=== PATIENT | male | born 1965 | race American Indian/Alaskan Native ===

== ENCOUNTER 2017-12-16 10:12 | Inpatient (IN) | payer BC ==
--- NOTE | 2017-12-16 11:35 | C.PDOC ---
History Of Present Illness 52 y/o male presents to the ER for incarcerated hernia. Of note, patient has been sent by his surgeon, Dr. Mccabe. Patient does not have any other complaints. Time Seen by Provider: 12/16/17 11:20 Chief Complaint (Nursing): Male Genitourinary History Per: Patient History/Exam Limitations: no limitations Onset/Duration Of Symptoms: Days Current Symptoms Are (Timing): Still Present Severity: Moderate Past Medical History Reviewed: Historical Data, Nursing Documentation, Vital Signs Vital Signs: Last Vital Signs Temp 97.6 F 12/16/17 10:28 Pulse 78 12/16/17 10:28 Resp 18 12/16/17 10:28 BP 117/74 12/16/17 10:28 Pulse Ox 99 12/16/17 11:48 - Medical History PMH: HIV, HTN Surgical History: No Surg Hx Family History: States: No Known Family Hx - Social History Hx Alcohol Use: No Hx Substance Use: No - Immunization History Hx Tetanus Toxoid Vaccination: No Hx Influenza Vaccination: Yes Hx Pneumococcal Vaccination: No Review Of Systems Except As Marked, All Systems Reviewed And Found Negative. Constitutional: Negative for: Fever, Chills Gastrointestinal: Positive for: Other (incarcerated hernia) Neurological: Negative for: Weakness, Numbness Physical Exam - Physical Exam Appears: Non-toxic, No Acute Distress Skin: Normal Color, Warm Head: Atraumatic, Normacephalic Eye(s): bilateral: Normal Inspection, PERRL Nose: Normal Oral Mucosa: Moist Neck: Supple Chest: Symmetrical Cardiovascular: Rhythm Regular Respiratory: Normal Breath Sounds, No Accessory Muscle Use, No Rales, No Wheezing Gastrointestinal/Abdominal: Normal Exam, Soft, No Tenderness, No Guarding, No Rebound Extremity: Normal ROM Neurological/Psych: Oriented x3, Normal Speech, Normal Cognition, Normal Motor, Normal Sensation ED Course And Treatment - Laboratory Results Result Diagrams: 12/16/17 12:40 12/16/17 12:40 ECG Rhythm: Sinus Rhythm Interpretation Of ECG: no ST/T changes Rate From EC O2 Sat by Pulse Oximetry: 99 Medical Decision Making Medical Decision Making: Impression: Incarcerated Hernia Plan: --Labs --ECG --CXR Disposition - Disposition Disposition: HOSPITALIZED Disposition Time: 15:30 Condition: STABLE - Clinical Impression Clinical Impression: Hernia - Scribe Statement The provider has reviewed the documentation as recorded by the Scribe Summen Maximo Provider Attestation: All medical record entries made by the Jordan were at my direction and personally dictated by me. I have reviewed the chart and agree that the record accurately reflects my personal performance of the history, physical exam, medical decision making, and the department course for this patient. I have also personally directed, reviewed, and agree with the discharge instructions and disposition. Decision To Admit - Pt Status Changed To: Hospital Disposition Of: SDS- Endo,OR,Cath,IR - . Bed Request Type: Same Day Surgery Admitting Physician: Kendrick Mccabe Patient Diagnosis: Hernia
--- NOTE | 2017-12-16 12:17 | RAD ---
HISTORY: baseline COMPARISON: None available. TECHNIQUE: Chest PA and lateral FINDINGS: LUNGS: Bilateral hilar prominence. No focal consolidation. Please note that chest x-ray has limited sensitivity for the detection of pulmonary masses. PLEURA: No significant pleural effusion identified. No definite pneumothorax . CARDIOVASCULAR: Heart size appears top normal. OSSEOUS STRUCTURES: No acute osseous abnormality identified. VISUALIZED UPPER ABDOMEN: Unremarkable. OTHER FINDINGS: None. IMPRESSION: Bilateral hilar prominence. No acute findings identified.
[2017-12-16 12:48] LABS: EOS # 0.1 K/uL (0.0-0.7); EOS % 1.5 % (0.0-4.0); HEMOGLOBIN 14.1 g/dL (12.0-18.0); LYMPH # 1.7 K/uL (1.0-4.3); LYMPH % 40.8 % (20.0-40.0); MEAN CELL VOLUME 93.8 fL (80.0-94.0); MEAN CORPUSCULAR HEMOGLOBIN 31.6 pg (27.0-31.0); MEAN CORPUSCULAR HGB CONC 33.7 g/dL (33.0-37.0); MEAN PLATELET VOLUME 8.1 fL (7.2-11.7); MONO # 0.4 K/uL (0.0-0.8); MONO % 8.8 % (0.0-10.0); NEUT % 47.9 % (50.0-75.0); RBC 4.46 Mil/uL (4.40-5.90); RED CELL DISTRIBUTION WIDTH 12.9 % (11.5-14.5); WHITE BLOOD COUNT 4.1 K/uL (4.8-10.8)
[2017-12-16 12:55] LABS: INR 1.1
[2017-12-16 12:58] LABS: ALBUMIN 4.1 g/dL (3.5-5.0); ALT/SGPT 69 U/L (21-72); AST/SGOT 48 U/L (17-59); BLOOD UREA NITROGEN 17 mg/dL (9-20); CALCIUM 8.9 mg/dl (8.6-10.4); GFR AFRICAN-AMERICAN > 60; GFR NON-AFRICAN AMERICAN > 60
[2017-12-16] MEDS ORDERED: Lactated Ringer's 1,000 ML IV ONE ×2 (15:00→16:15)
[2017-12-16] MEDS ORDERED: ceFAZolin IV 2 gm in Dextrose 2 GM/50 ML BAG IVPB ONE (15:03)
[2017-12-16] MEDS ORDERED: Propofol 10 mg/ml Inj (20 ML) ONE (15:05)
[2017-12-16] MEDS ORDERED: Midazolam 2 MG/2 ML VIAL ONE (15:05)
[2017-12-16] MEDS ORDERED: metroNIDAZOLE IV 500 mg/100 ml 500 MG/100 ML BAG ONE (16:15)
[2017-12-16] MEDS ORDERED: HYDROmorphone 0.5 mg/0.5 ml ISec IVP PRN (16:30)
[2017-12-16] MEDS ORDERED: Bupivacaine HCl 0.25% PF (10 ml) Inj ONE (16:52)
[2017-12-16] MEDS ORDERED: Oxycodone/Acetaminophen 5/325 mg Tab PO PRN (17:07)
[2017-12-16] MEDS ORDERED: Piperacillin/Tazobact 3.375 GM in Sodium Chloride 100 ML IVPB SCH (17:15)
[2017-12-16] MEDS ORDERED: metroNIDAZOLE IV 500 mg/100 ml 500 MG/100 ML BAG IVPB SCH (18:00)
[2017-12-16] MEDS ORDERED: Dextrose 5%/0.45% NS 1,000 ML IV ONE (18:27)
[2017-12-16] MEDS: Piperacill/Tazo 3.375gm in Dex 3.375 GM/50 ML BAG IVPB SCH ×2 (18:28→23:56)
[2017-12-16] MEDS: Dextrose 5%/0.45% NS 1,000 ML IV SCH (21:27)
--- NOTE | 2017-12-16 21:57 | CP.PCM.HP ---
History of Present Illness - History of Present Illness History of Present Illness: CC: Post op care s/p surgery of inguinal hernia HPI: 52 y/o male who is HIV positive on HAART therapy , complaint and according to him his last CD4 count was good presents to the ER for incarcerated hernia. Of note, patient has been sent by his surgeon, Dr. Mccabe. Patient does not have any other complaints.Pt has some ost op pain denies any other complains Present on Admission - Present on Admission Any Indicators Present on Admission: Yes Review of Systems - Review of Systems Systems not reviewed;Unavailable: Acuity of Condition - Constitutional Constitutional: Anorexia, Fatigue, Malaise - EENT Eyes: absent: As Per HPI, Blind Spots, Blurred Vision, Change in Vision, Decreased Night Vision, Diplopia, Discharge, Dry Eye, Exophthalmos, Floaters, Irritation, Itchy Eyes, Loss of Peripheral Vision, Pain, Photophobia, Requires Corrective Lenses, Sees Flashes, Spots in Vision, Tunnel Vision, Other Visual Disturbances, Loss of Vision, Other Nose/Mouth/Throat: absent: As Per HPI, Epistaxis, Nasal Congestion, Nasal Discharge, Nasal Obstruction, Nasal Trauma, Nose Pain, Post Nasal Drip, Sinus Pain, Sinus Pressure, Bleeding Gums, Change in Voice, Dental Pain, Dry Mouth, Dysphagia, Halitosis, Hoarsness, Lip Swelling, Mouth Lesions, Mouth Pain, Odynophagia, Sore Throat, Throat Swelling, Tongue Swelling, Facial Pain, Neck Pain, Neck Mass, Other - Cardiovascular Cardiovascular: absent: As Per HPI, Acrocyanosis, Chest Pain, Chest Pain at Rest , Chest Pain with Activity, Claudication, Diaphoresis, Dyspnea, Dyspnea on Exertion, Edema, Irregular Heart Rhythm, Pain Radiating to Arm/Neck/Jaw, Leg Edema, Leg Ulcers, Lightheadedness, Orthopnea, Palpitations, Paroxysmal Nocturnal Dyspnea, Pedal Edema, Radiating Pain, Rapid Heart Rate, Slow Heart Rate, Syncope, Other - Respiratory Respiratory: absent: As Per HPI, Cough, Dyspnea, Hemoptysis, Dyspnea on Exertion , Wheezing, Snoring, Stridor, Pain on Inspiration, Chest Congestion, Excessive Mucous Production, Change in Mucous Color, Pain with Coughing, Other - Gastrointestinal Gastrointestinal: absent: As Per HPI, Abdominal Pain, Belching, Bloating, Change in Bowel Habits, Change in Stool Character, Coffee Ground Emesis, Constipation, Cramping, Diarrhea, Dyspepsia, Dysphagia, Early Satiety, Excessive Flatus, Fecal Incontinence, Heartburn, Hematemesis, Hematochezia, Loose Stools, Melena, Nausea, Odynophagia, Temesmus, Vomiting, Other - Genitourinary Genitourinary: absent: As Per HPI, Change in Urinary Stream, Difficulty Urinating, Dysuria, Flank Pain, Hematuria, Pyuria, Nocturia, Urinary Incontinence, Urinary Frequency, Urinary Hesitance, Urinary Urgency, Voiding Freq/Small Amts, Freq UTI, Hx Renal/Bladder Calculi, Hx /Renal Surgery, Bladder Distension, Other - Musculoskeletal Musculoskeletal: absent: As Per HPI, Abnormal Gait, Arthralgias, Atrophy, Back Pain, Deformity, Joint Swelling, Limited Range of Motion, Loss of Height, Muscle Cramps, Muscle Weakness, Myalgias, Neck Pain, Numbness, Radiating Pain into Limb, Stiffness, Tingling, Other Past Patient History - Past Social History Smoking Status: Never Smoked - CARDIAC Hx Hypertension: Yes - HEMATOLOGICAL/ONCOLOGICAL Hx Human Immunodeficiency Virus (HIV): Yes - MUSCULOSKELETAL/RHEUMATOLOGICAL Hx Falls: No - GENITOURINARY/GYNECOLOGICAL Hx Prostate Problems: Yes - PSYCHIATRIC Hx Substance Use: No - SURGICAL HISTORY Hx Surgeries: No - ANESTHESIA Hx Anesthesia: Yes Hx Anesthesia Reactions: No Meds Allergies/Adverse Reactions: Allergies Allergy/AdvReac Type Severity Reaction Status Date / Time animal dander Allergy Verified 12/16/17 10:33 Physical Exam - Constitutional Appears: No Acute Distress - Head Exam Head Exam: ATRAUMATIC, NORMAL INSPECTION, NORMOCEPHALIC - Eye Exam Eye Exam: EOMI, Normal appearance, PERRL Pupil Exam: NORMAL ACCOMODATION, PERRL - Respiratory Exam Respiratory Exam: Clear to Auscultation Bilateral, NORMAL BREATHING PATTERN - Cardiovascular Exam Cardiovascular Exam: REGULAR RHYTHM - GI/Abdominal Exam GI & Abdominal Exam: Hernia, Tenderness Additional comments: post op dressing right inguinal hernia repair Results - Vital Signs Recent Vital Signs: Last Vital Signs Temp 98.5 F 12/16/17 20:00 Pulse 92 H 12/16/17 20:00 Resp 20 12/16/17 20:00 BP 141/71 12/16/17 20:00 Pulse Ox 98 12/16/17 20:00 - Labs Result Diagrams: 12/16/17 12:40 12/16/17 12:40 Labs: Laboratory Results - last 24 hr 12/16/17 12/16/17 12/16/17 12:40 12:40 12:40 WBC 4.1 L RBC 4.46 Hgb 14.1 Hct 41.9 MCV 93.8 MCH 31.6 H MCHC 33.7 RDW 12.9 Plt Count 272 MPV 8.1 Neut % (Auto) 47.9 L Lymph % (Auto) 40.8 H Mellette % (Auto) 8.8 Eos % (Auto) 1.5 Baso % (Auto) 1.0 Neut # 2.0 Lymph # 1.7 Mellette # 0.4 Eos # 0.1 Baso # 0.0 PT 12.0 INR 1.1 APTT 33 Sodium 134 Potassium 4.3 Chloride 102 Carbon Dioxide 23 Anion Gap 13 BUN 17 Creatinine 0.9 Est GFR ( Amer) > 60 Est GFR (Non-Af Amer) > 60 Random Glucose 106 Calcium 8.9 Total Bilirubin 0.5 AST 48 ALT 69 Alkaline Phosphatase 68 Total Protein 8.3 Albumin 4.1 Globulin 4.2 H Albumin/Globulin Ratio 1.0 Blood Type Antibody Screen 12/16/17 12:40 WBC RBC Hgb Hct MCV MCH MCHC RDW Plt Count MPV Neut % (Auto) Lymph % (Auto) Mellette % (Auto) Eos % (Auto) Baso % (Auto) Neut # Lymph # Mellette # Eos # Baso # PT INR APTT Sodium Potassium Chloride Carbon Dioxide Anion Gap BUN Creatinine Est GFR ( Amer) Est GFR (Non-Af Amer) Random Glucose Calcium Total Bilirubin AST ALT Alkaline Phosphatase Total Protein Albumin Globulin Albumin/Globulin Ratio Blood Type A NEGATIVE Antibody Screen Negative Assessment & Plan (1) S/P inguinal hernia repair Status: Acute (2) HIV positive Status: Acute (3) Hernia Status: Acute
[2017-12-17] MEDS: metroNIDAZOLE IV 500 mg/100 ml 500 MG/100 ML BAG IVPB SCH ×3 (00:35→16:25)
--- NOTE | 2017-12-17 04:41 | OP ---
PROCEDURE DATE: 12/16/2017 PREOPERATIVE DIAGNOSIS: Incarcerated right inguinal hernia . POSTOPERATIVE DIAGNOSES: 1. Sliding right inguinal hernia. 2. Enterotomy of colon. PROCEDURES PERFORMED: 1. Repair of sliding right inguinal hernia with biologic mesh. 2. Repair of staple closure of colotomy. SURGEON: Kendrick Mccabe MD ANESTHESIA: General. BLOOD LOSS: 30 mL. POSTOPERATIVE CONDITION: Stable. INDICATIONS FOR SURGERY: This is a 52-year-old male, presented today with an incarcerated right inguinal hernia, taken to the OR for repair. GROSS FINDINGS: Patient had a large hernia sac with fair amount of both omentum and lipomatous tissue. At the base of the sac, colon was found while dissecting back the hernia sac. During this maneuver, some peritoneum was taken off the colon resulting in a colotomy, which was subsequently repaired. Because of the colotomy, a regular mesh repair was not performed; instead, a biologic mesh was used. DESCRIPTION OF PROCEDURE: The patient taken to the operating room, general anesthesia was administered. The abdomen was prepped and draped . A right inguinal incision was made and external oblique aponeurosis was opened. The spermatic cord and hernia were looped with a Bunny drain through careful dissection. Hernia sac was encountered along with a portion of the colon. During this maneuver, colotomy was made. It was immediately identified, cleansed of investing tissue and closed using a TA-30 stapler. After this, the IrriSept irrigation system was used to disinfect and irrigate the area. The remainder of the hernia sac dissection took place. During this maneuver, there was bleeding noted from spermatic artery, which was repaired with 7-0 Prolene and flow was documented by Doppler. A large lipoma from the spermatic cord was also removed. The hernia contents were then reduced and an imbricating layer of interrupted 2-0 Prolene suture was placed in the layer of the conjoint tendon. Once this had been placed, a biologic hernia mesh was fashioned and sutured to the pubic tubercle medially, the conjoint tendon superiorly, and the shelving edge of Poupart's ligament inferiorly. It was connected laterally with a running suture after a slit had been placed in the middle to accommodate the spermatic cord. The hernia repair was accomplished leaving a large tissue defect. An advancement flap closure was performed by mobilizing full-thickness layers, making counter incisions and using a running heavy subcuticular Monocryl and skin clips. The patient tolerated the procedure well and returned o recovery room in stable condition. Kendrick Mccabe MD
[2017-12-17] MEDS: Piperacill/Tazo 3.375gm in Dex 3.375 GM/50 ML BAG IVPB SCH (05:20)
[2017-12-17] MEDS: Dextrose 5%/0.45% NS 1,000 ML IV SCH ×2 (07:00→13:13)
[2017-12-17] MEDS: Piperacillin/Tazobact 3.375 GM in Sodium Chloride 0.9% 100 ML IVPB SCH ×2 (17:35→23:52)
[2017-12-17] MEDS ORDERED: MARAVIROC 150 MG PO SCH (18:00)
[2017-12-17] MEDS: Abacavir/Lamivudine 600 mg-300 mg Tab PO SCH (18:05)
[2017-12-17 19:57] LABS: BASO # 0.1 K/uL (0.0-0.2); BASO % 0.5 % (0.0-2.0); EOS % 0.1 % (0.0-4.0); HEMOGLOBIN 12.7 g/dL (12.0-18.0); LYMPH # 1.4 K/uL (1.0-4.3); LYMPH % 14.1 % (20.0-40.0); MEAN CORPUSCULAR HEMOGLOBIN 32.4 pg (27.0-31.0); MEAN CORPUSCULAR HGB CONC 34.1 g/dL (33.0-37.0); MONO # 1.1 K/uL (0.0-0.8); NEUT # 7.1 K/uL (1.8-7.0); NEUT % 74.3 % (50.0-75.0); RBC 3.91 Mil/uL (4.40-5.90)
[2017-12-17 20:03] LABS: WHITE BLOOD COUNT 9.6 K/uL (4.8-10.8)
[2017-12-17 20:15] LABS: ALB/GLOB RATIO 0.9 (1.0-2.1); ALBUMIN 3.6 g/dL (3.5-5.0); ALT/SGPT 67 U/L (21-72); AST/SGOT 53 U/L (17-59); BLOOD UREA NITROGEN 17 mg/dL (9-20); CALCIUM 8.6 mg/dl (8.6-10.4); GFR AFRICAN-AMERICAN > 60; GFR NON-AFRICAN AMERICAN > 60
[2017-12-17] MEDS ORDERED: Enoxaparin 40 mg Syringe SC SCH (22:00)
--- NOTE | 2017-12-17 23:37 | CP.PCM.PN ---
Subjective - Date & Time of Evaluation Date of Evaluation: 12/17/17 Time of Evaluation: 19:00 - Subjective Subjective: Pt seen and examined by me today Objective - Vital Signs/Intake and Output Vital Signs (last 24 hours): Temp Pulse Resp BP Pulse Ox 98.2 F 81 20 101/74 96 12/17/17 15:56 12/17/17 15:56 12/17/17 15:56 12/17/17 15:56 12/17/17 15:56 - Medications Medications: Current Medications Abacavir/Lamivudine (Epzicom) 1 tab PO DAILY COUNT INCLUDES [facility] Last Admin: 12/17/17 18:05 Dose: 1 tab Acetaminophen (Tylenol 325mg Tab) 650 mg PO Q6 PRN PRN Reason: Fever >100.4 F Last Admin: 12/17/17 08:46 Dose: 650 mg Apixaban (Eliquis) 5 mg PO BID COUNT [facility]CLUD[facility] Last Admin: 12/17/17 17:36 Dose: 5 mg Darunavir (Prezista) 600 mg PO BID COUNT [facility]CLUD[facility] Last Admin: 12/17/17 18:05 Dose: 600 mg Docusate Sodium (Colace) 100 mg PO BID COUNT [facility]CLUDES [facility] Last Admin: 12/17/17 17:36 Dose: 100 mg Dolutegravir Sodium (Tivicay) 50 mg PO HS COUNT [facility]CLUDES [facility] Last Admin: 12/17/17 21:22 Dose: 50 mg Dextrose/Sodium Chloride (Dextrose 5%/0.45% Ns 1000 Ml) 1,000 mls @ 100 mls/hr IV .Q10H COUNT INCLUDES THE [facility] Last Admin: 12/17/17 13:13 Dose: Not Given Metronidazole (Flagyl) 500 mg in 100 mls @ 100 mls/hr IVPB Q8H COUNT [facility]CLUDES [facility] Last Admin: 12/17/17 16:25 Dose: 100 mls/hr Piperacillin Sod/Tazobactam (Sod 3.375 gm/ Sodium Chloride) 100 mls @ 100 mls/ hr IVPB Q6 COUNT [facility]CLUDES [facility] Last Admin: 12/17/17 17:35 Dose: 100 mls/hr Ketorolac Tromethamine (Toradol) 30 mg IVP Q6 PRN PRN Reason: pain 8-10 Stop: 12/21/17 17:08 Last Admin: 12/16/17 17:40 Dose: 30 mg Oxycodone/Acetaminophen (Percocet 5/325 Mg Tab) 2 tab PO Q4H PRN PRN Reason: pain 1-8 Stop: 12/19/17 17:08 Last Admin: 12/17/17 14:25 Dose: 2 tab Pantoprazole Sodium (Protonix Inj) 40 mg IVP DAILY COUNT [facility]CLUD[facility] Last Admin: 12/17/17 10:09 Dose: 40 mg Pneumococcal Polyvalent Vaccine (Pneumovax 23 Vaccine) 0.5 ml IM .ONCE ONE Stop: 12/18/17 10:01 Rosuvastatin Calcium (Crestor) 5 mg PO HS COUNT [facility]CLUDES [facility] Last Admin: 12/17/17 21:22 Dose: 5 mg Tamsulosin HCl (Flomax) 0.4 mg PO DAILY [facility] - Labs Labs: 12/17/17 19:45 12/17/17 19:45 PT 12.0 SECONDS (9.7-12.2) 12/16/17 12:40 INR 1.1 12/16/17 12:40 APTT 33 SECONDS (21-34) 12/16/17 12:40 Assessment and Plan (1) S/P inguinal hernia repair Status: Acute (2) HIV positive Status: Acute (3) Hernia Status: Acute
[2017-12-18] MEDS: metroNIDAZOLE IV 500 mg/100 ml 500 MG/100 ML BAG IVPB SCH ×3 (00:55→16:04)
[2017-12-18] MEDS: Piperacillin/Tazobact 3.375 GM in Sodium Chloride 0.9% 100 ML IVPB SCH ×4 (05:20→23:55)
[2017-12-18] MEDS: Dextrose 5%/0.45% NS 1,000 ML IV SCH ×3 (05:20→21:54)
[2017-12-18] MEDS: Abacavir/Lamivudine 600 mg-300 mg Tab PO SCH (09:50)
[2017-12-18] MEDS ORDERED: Pneumococcal 23-Valent Vaccine IM ONE (10:00)
--- NOTE | 2017-12-18 16:04 | CARD ---
APPROVED REPORT EKG Measurement Heart [id number] IN [id number] <Conclusion> Normal sinus rhythm Normal ECG
--- NOTE | 2017-12-18 23:17 | CP.PCM.PN ---
Subjective - Date & Time of Evaluation Date of Evaluation: 12/18/17 Time of Evaluation: 18:00 - Subjective Subjective: Pt is seen and evaluated today, pt is c/o mild discomfort in right inguinal area , pt is on medical managmnet and HAART therapy, on antibiotics too, no distress , no nausea/ vomitting s/p OR on Pot op care Objective - Vital Signs/Intake and Output Vital Signs (last 24 hours): Temp Pulse Resp BP Pulse Ox 99.7 F H 97 H 20 122/59 L 96 12/18/17 21:58 12/18/17 15:50 12/18/17 15:50 12/18/17 15:50 12/18/17 15:50 Intake and Output: 12/18/17 12/19/17 18:59 06:59 Intake Total 1220 Output Total 300 Balance 920 - Medications Medications: Current Medications Abacavir/Lamivudine (Epzicom) 1 tab PO DAILY [facility] Last Admin: 12/18/17 09:50 Dose: 1 tab Acetaminophen (Tylenol 325mg Tab) 650 mg PO Q6 PRN PRN Reason: Fever >100.4 F Last Admin: 12/17/17 08:46 Dose: 650 mg Apixaban (Eliquis) 5 mg PO BID [facility] Last Admin: 12/18/17 17:34 Dose: 5 mg Darunavir (Prezista) 600 mg PO BID [facility] Last Admin: 12/18/17 18:35 Dose: 600 mg Docusate Sodium (Colace) 100 mg PO BID [facility] Last Admin: 12/18/17 17:34 Dose: 100 mg Dolutegravir Sodium (Tivicay) 50 mg PO HS [facility] Last Admin: 12/18/17 21:54 Dose: 50 mg Dextrose/Sodium Chloride (Dextrose 5%/0.45% Ns 1000 Ml) 1,000 mls @ 100 mls/hr IV .Q10H [facility] Last Admin: 12/18/17 21:54 Dose: 100 mls/hr Metronidazole (Flagyl) 500 mg in 100 mls @ 100 mls/hr IVPB Q8H [facility] Last Admin: 12/18/17 16:04 Dose: 100 mls/hr Piperacillin Sod/Tazobactam (Sod 3.375 gm/ Sodium Chloride) 100 mls @ 100 mls/ hr IVPB Q6 [facility] Last Admin: 12/18/17 17:35 Dose: 100 mls/hr Oxycodone/Acetaminophen (Percocet 5/325 Mg Tab) 2 tab PO Q4H PRN PRN Reason: pain 1-8 Stop: 12/19/17 17:08 Last Admin: 12/17/17 14:25 Dose: 2 tab Pantoprazole Sodium (Protonix Inj) 40 mg IVP DAILY [facility] Last Admin: 12/18/17 09:51 Dose: 40 mg Rosuvastatin Calcium (Crestor) 5 mg PO HS [facility] Last Admin: 12/18/17 21:54 Dose: 5 mg Tamsulosin HCl (Flomax) 0.4 mg PO DAILY [facility] Last Admin: 12/18/17 09:50 Dose: 0.4 mg - Labs Labs: 12/17/17 19:45 12/17/17 19:45 PT 12.0 SECONDS (9.7-12.2) 12/16/17 12:40 INR 1.1 12/16/17 12:40 APTT 33 SECONDS (21-34) 12/16/17 12:40 - Constitutional Appears: No Acute Distress - Head Exam Head Exam: ATRAUMATIC, NORMAL INSPECTION, NORMOCEPHALIC - Eye Exam Eye Exam: EOMI, Normal appearance, PERRL Pupil Exam: NORMAL ACCOMODATION, PERRL - Respiratory Exam Respiratory Exam: Clear to Ausculation Bilateral, NORMAL BREATHING PATTERN - Cardiovascular Exam Cardiovascular Exam: REGULAR RHYTHM, +S1, +S2. absent: Murmur - GI/Abdominal Exam GI & Abdominal Exam: Soft, Normal Bowel Sounds. absent: Tenderness - Rectal Exam Rectal Exam: Deferred Assessment and Plan (1) S/P inguinal hernia repair Status: Acute (2) HIV positive Status: Acute (3) Hernia Status: Acute
[2017-12-18] MEDS ORDERED: Benzocaine/Menthol (Cepacol) Lozenge MT PRN (23:51)
[2017-12-19] MEDS: metroNIDAZOLE IV 500 mg/100 ml 500 MG/100 ML BAG IVPB SCH ×3 (00:58→15:55)
[2017-12-19] MEDS: Piperacillin/Tazobact 3.375 GM in Sodium Chloride 0.9% 100 ML IVPB SCH ×3 (05:16→17:34)
--- NOTE | 2017-12-19 08:23 | CP.PCM.PN ---
Subjective - Date & Time of Evaluation Date of Evaluation: 12/19/17 Time of Evaluation: 08:00 - Subjective Subjective: pt is s/p R groin hernia repair with mesh staple closure of colotomy POD #[address] to the r groin area, no s/s infection noted Objective - Vital Signs/Intake and Output Vital Signs (last 24 hours): Temp Pulse Resp BP Pulse Ox 99.0 F 90 18 112/57 L 95 12/19/17 04:15 12/19/17 04:00 12/19/17 04:00 12/19/17 04:00 12/19/17 04:00 Intake and Output: 12/19/17 12/19/17 06:59 18:59 Intake Total 1740 Output Total 1300 Balance 440 - Medications Medications: Current Medications Abacavir/Lamivudine (Epzicom) 1 tab PO DAILY [facility] Last Admin: 12/18/17 09:50 Dose: 1 tab Acetaminophen (Tylenol 325mg Tab) 650 mg PO Q6 PRN PRN Reason: Fever >100.4 F Last Admin: 12/17/17 08:46 Dose: 650 mg Apixaban (Eliquis) 5 mg PO BID [facility] Last Admin: 12/18/17 17:34 Dose: 5 mg Benzocaine/Menthol (Cepacol Sore Throat) 1 claude MT Q6 PRN PRN Reason: Sore Throat Darunavir (Prezista) 600 mg PO BID [facility] Last Admin: 12/18/17 18:35 Dose: 600 mg Docusate Sodium (Colace) 100 mg PO BID [facility] Last Admin: 12/18/17 17:34 Dose: 100 mg Dolutegravir Sodium (Tivicay) 50 mg PO HS [facility] Last Admin: 12/18/17 21:54 Dose: 50 mg Metronidazole (Flagyl) 500 mg in 100 mls @ 100 mls/hr IVPB Q8H [facility] Last Admin: 12/19/17 08:16 Dose: 100 mls/hr Piperacillin Sod/Tazobactam (Sod 3.375 gm/ Sodium Chloride) 100 mls @ 100 mls/ hr IVPB Q6 [facility] Last Admin: 12/19/17 05:16 Dose: 100 mls/hr Oxycodone/Acetaminophen (Percocet 5/325 Mg Tab) 2 tab PO Q4H PRN PRN Reason: pain 1-8 Stop: 12/19/17 17:08 Last Admin: 12/17/17 14:25 Dose: 2 tab Pantoprazole Sodium (Protonix Inj) 40 mg IVP DAILY [facility] Last Admin: 12/18/17 09:51 Dose: 40 mg Rosuvastatin Calcium (Crestor) 5 mg PO HS [facility] Last Admin: 12/18/17 21:54 Dose: 5 mg Tamsulosin HCl (Flomax) 0.4 mg PO DAILY [facility] Last Admin: 12/18/17 09:50 Dose: 0.4 mg - Labs Labs: 12/17/17 19:45 12/17/17 19:45 PT 12.0 SECONDS (9.7-12.2) 12/16/17 12:40 INR 1.1 12/16/17 12:40 APTT 33 SECONDS (21-34) 12/16/17 12:40 - Constitutional Appears: No Acute Distress - Head Exam Head Exam: ATRAUMATIC, NORMAL INSPECTION, NORMOCEPHALIC - Respiratory Exam Respiratory Exam: Clear to Ausculation Bilateral, NORMAL BREATHING PATTERN - Cardiovascular Exam Cardiovascular Exam: REGULAR RHYTHM, +S1, +S2. absent: Murmur Assessment and Plan (1) S/P inguinal hernia repair Status: Acute (2) HIV positive Status: Acute (3) Hernia Status: Acute
[2017-12-19] MEDS: Abacavir/Lamivudine 600 mg-300 mg Tab PO SCH (09:19)
[2017-12-19 12:08] LABS: BASO % 0.3 % (0.0-2.0); EOS # 0.1 K/uL (0.0-0.7); EOS % 0.9 % (0.0-4.0); HEMOGLOBIN 11.8 g/dL (12.0-18.0); LYMPH % 14.4 % (20.0-40.0); MEAN CELL VOLUME 94.2 fL (80.0-94.0); MEAN CORPUSCULAR HEMOGLOBIN 32.9 pg (27.0-31.0); MEAN CORPUSCULAR HGB CONC 34.9 g/dL (33.0-37.0); MEAN PLATELET VOLUME 8.4 fL (7.2-11.7); MONO # 0.7 K/uL (0.0-0.8); MONO % 9.2 % (0.0-10.0); NEUT # 5.3 K/uL (1.8-7.0); NEUT % 75.2 % (50.0-75.0); RBC 3.6 Mil/uL (4.40-5.90); RED CELL DISTRIBUTION WIDTH 12.4 % (11.5-14.5); WHITE BLOOD COUNT 7.1 K/uL (4.8-10.8)
[2017-12-19 12:28] LABS: ALB/GLOB RATIO 0.8 (1.0-2.1); ALBUMIN 3.2 g/dL (3.5-5.0); ALT/SGPT 42 U/L (21-72); AST/SGOT 29 U/L (17-59); BLOOD UREA NITROGEN 10 mg/dL (9-20); CALCIUM 8.5 mg/dl (8.6-10.4); GFR AFRICAN-AMERICAN > 60; GFR NON-AFRICAN AMERICAN > 60
[2017-12-19] MEDS ORDERED: Potassium Chloride 20 mEq ER Tab PO SCH (16:30)
[2017-12-19] MEDS ORDERED: Potassium Chloride 20 mEq/15 ml LIQ UD PO STA (19:10)
[2017-12-20] MEDS: Piperacill/Tazo 3.375gm in Dex 3.375 GM/50 ML BAG IVPB SCH ×3 (00:02→11:36)
[2017-12-20] MEDS: metroNIDAZOLE IV 500 mg/100 ml 500 MG/100 ML BAG IVPB SCH ×2 (00:43→08:11)
[2017-12-20 01:07] VITALS: RESP 20
[2017-12-20 08:13] VITALS: BP 124/74; PULSE 84; TEMP 99.4; O2SAT 97
[2017-12-20] MEDS: Abacavir/Lamivudine 600 mg-300 mg Tab PO SCH (10:31)
--- NOTE | 2017-12-20 12:55 | CP.PCM.PN ---
Subjective - Date & Time of Evaluation Date of Evaluation: 12/20/17 Time of Evaluation: 11:00 - Subjective Subjective: Patient seen today denies any fever, chills, abdominal pain, N/V/D OOB ambulating s/p R groin hernia repair with mesh staple closure of colotomy POD #4 Objective - Vital Signs/Intake and Output Vital Signs (last 24 hours): Temp Pulse Resp BP Pulse Ox 99.4 F 84 20 124/74 97 12/20/17 08:05 12/20/17 08:05 12/20/17 08:05 12/20/17 08:05 12/20/17 08:05 Intake and Output: 12/20/17 12/20/17 06:59 18:59 Intake Total 1040 Output Total 300 Balance 740 - Medications Medications: Current Medications Abacavir/Lamivudine (Epzicom) 1 tab PO DAILY [facility] Last Admin: 12/20/17 10:31 Dose: 1 tab Acetaminophen (Tylenol 325mg Tab) 650 mg PO Q6 PRN PRN Reason: Fever >100.4 F Last Admin: 12/17/17 08:46 Dose: 650 mg Apixaban (Eliquis) 5 mg PO BID [facility] Last Admin: 12/20/17 10:31 Dose: 5 mg Benzocaine/Menthol (Cepacol Sore Throat) 1 claude MT Q6 PRN PRN Reason: Sore Throat Darunavir (Prezista) 600 mg PO BID [facility] Last Admin: 12/20/17 10:31 Dose: 600 mg Docusate Sodium (Colace) 100 mg PO BID [facility] Last Admin: 12/20/17 10:35 Dose: Not Given Dolutegravir Sodium (Tivicay) 50 mg PO HS [facility] Last Admin: 12/19/17 21:51 Dose: 50 mg Metronidazole (Flagyl) 500 mg in 100 mls @ 100 mls/hr IVPB Q8H [facility] Last Admin: 12/20/17 08:11 Dose: 100 mls/hr Piperacillin Sod/Tazobactam Sod (Zosyn 3.375 Gm Iv Premix) 3.375 gm in 50 mls @ 100 mls/hr IVPB Q6 [facility] Last Admin: 12/20/17 11:36 Dose: 100 mls/hr Pantoprazole Sodium (Protonix Inj) 40 mg IVP DAILY [facility] Last Admin: 12/20/17 10:31 Dose: 40 mg Rosuvastatin Calcium (Crestor) 5 mg PO HS [facility] Last Admin: 12/19/17 21:51 Dose: 5 mg Tamsulosin HCl (Flomax) 0.4 mg PO DAILY [facility] Last Admin: 12/20/17 10:31 Dose: 0.4 mg - Labs Labs: 12/19/17 11:54 12/19/17 11:54 PT 12.0 SECONDS (9.7-12.2) 12/16/17 12:40 INR 1.1 12/16/17 12:40 APTT 33 SECONDS (21-34) 12/16/17 12:40 Assessment and Plan - Assessment and Plan (Free Text) Assessment: 52 yr old male admitted s/p R groin hernia repair with mesh staple closure of colotomy POD #[address] to the r groin area, no s/s infection noted D/W Dr. Mccabe stable for discharge home today and f/u with office next Saturday and continue flagyl for 7 more days Discharge plan discussed with patient who understands and agrees with plan Patient instructed to returned to ED if any fever develops
--- NOTE | 2017-12-21 17:19 | CP.PCM.PN ---
Subjective - Date & Time of Evaluation Date of Evaluation: 12/20/17 Time of Evaluation: 19:00 - Subjective Subjective: Pt seen and examined, \ denies any fever, chills, abdominal pain, N/V/D OOB ambulating s/p R groin hernia repair with mesh staple closure of colotomy POD #3 Objective - Vital Signs/Intake and Output Vital Signs (last 24 hours): Temp Pulse Resp BP Pulse Ox 99.4 F 84 20 124/74 97 12/20/17 08:05 12/20/17 08:05 12/20/17 08:05 12/20/17 08:05 12/20/17 08:05 - Labs Labs: 12/19/17 11:54 12/19/17 11:54 PT 12.0 SECONDS (9.7-12.2) 12/16/17 12:40 INR 1.1 12/16/17 12:40 APTT 33 SECONDS (21-34) 12/16/17 12:40 - Constitutional Appears: No Acute Distress - Head Exam Head Exam: ATRAUMATIC, NORMAL INSPECTION, NORMOCEPHALIC - Eye Exam Eye Exam: EOMI, Normal appearance, PERRL Pupil Exam: NORMAL ACCOMODATION, PERRL - Respiratory Exam Respiratory Exam: Clear to Ausculation Bilateral, NORMAL BREATHING PATTERN - Cardiovascular Exam Cardiovascular Exam: REGULAR RHYTHM, +S1, +S2. absent: Murmur Assessment and Plan (1) S/P inguinal hernia repair Status: Acute (2) HIV positive Status: Acute (3) Hernia Status: Acute
--- NOTE | 2017-12-21 17:20 | CP.PCM.PN ---
Subjective - Date & Time of Evaluation Date of Evaluation: 12/20/17 Time of Evaluation: 19:00 - Subjective Subjective: Patient seen today denies any fever, chills, abdominal pain, N/V/D OOB ambulating s/p R groin hernia repair with mesh staple closure of colotomy POD #4 Objective - Vital Signs/Intake and Output Vital Signs (last 24 hours): Temp Pulse Resp BP Pulse Ox 99.4 F 84 20 124/74 97 12/20/17 08:05 12/20/17 08:05 12/20/17 08:05 12/20/17 08:05 12/20/17 08:05 - Labs Labs: 12/19/17 11:54 12/19/17 11:54 PT 12.0 SECONDS (9.7-12.2) 12/16/17 12:40 INR 1.1 12/16/17 12:40 APTT 33 SECONDS (21-34) 12/16/17 12:40 - Constitutional Appears: No Acute Distress - Head Exam Head Exam: ATRAUMATIC, NORMAL INSPECTION, NORMOCEPHALIC - Eye Exam Eye Exam: EOMI, Normal appearance, PERRL Pupil Exam: NORMAL ACCOMODATION, PERRL - Respiratory Exam Respiratory Exam: Clear to Ausculation Bilateral, NORMAL BREATHING PATTERN - Cardiovascular Exam Cardiovascular Exam: REGULAR RHYTHM, +S1, +S2. absent: Murmur - GI/Abdominal Exam GI & Abdominal Exam: Soft, Normal Bowel Sounds. absent: Tenderness Assessment and Plan (1) S/P inguinal hernia repair Status: Acute (2) HIV positive Status: Acute (3) Hernia Status: Acute
--- NOTE | 2017-12-21 17:21 | CP.PCM.DIS ---
Provider - Provider Date of Admission: 12/16/17 17:03 Attending physician: Kendrick Mccabe MD Time Spent in preparation of Discharge (in minutes): 56 Diagnosis - Discharge Diagnosis (1) S/P inguinal hernia repair Status: Acute (2) HIV positive Status: Acute (3) Hernia Status: Acute Hospital Course - Lab Results Lab Results: Most Recent Lab Values WBC 7.1 K/uL (4.8-10.8) 12/19/17 11:54 RBC 3.60 Mil/uL (4.40-5.90) L 12/19/17 11:54 Hgb 11.8 g/dL (12.0-18.0) L 12/19/17 11:54 Hct 33.9 % (35.0-51.0) L 12/19/17 11:54 MCV 94.2 fL (80.0-94.0) H 12/19/17 11:54 MCH 32.9 pg (27.0-31.0) H 12/19/17 11:54 MCHC 34.9 g/dL (33.0-37.0) 12/19/17 11:54 RDW 12.4 % (11.5-14.5) 12/19/17 11:54 Plt Count 208 K/uL (130-400) 12/19/17 11:54 MPV 8.4 fL (7.2-11.7) 12/19/17 11:54 Neut % (Auto) 75.2 % (50.0-75.0) H 12/19/17 11:54 Lymph % (Auto) 14.4 % (20.0-40.0) L 12/19/17 11:54 Dickenson % (Auto) 9.2 % (0.0-10.0) 12/19/17 11:54 Eos % (Auto) 0.9 % (0.0-4.0) 12/19/17 11:54 Baso % (Auto) 0.3 % (0.0-2.0) 12/19/17 11:54 Neut # 5.3 K/uL (1.8-7.0) 12/19/17 11:54 Lymph # 1.0 K/uL (1.0-4.3) 12/19/17 11:54 Dickenson # 0.7 K/uL (0.0-0.8) 12/19/17 11:54 Eos # 0.1 K/uL (0.0-0.7) 12/19/17 11:54 Baso # 0.0 K/uL (0.0-0.2) 12/19/17 11:54 PT 12.0 SECONDS (9.7-12.2) 12/16/17 12:40 INR 1.1 12/16/17 12:40 APTT 33 SECONDS (21-34) 12/16/17 12:40 Sodium 134 mmol/L (132-148) 12/19/17 11:54 Potassium 3.4 mmol/L (3.6-5.2) L 12/19/17 11:54 Chloride 103 mmol/L (98-107) 12/19/17 11:54 Carbon Dioxide 23 mmol/L (22-30) 12/19/17 11:54 Anion Gap 12 (10-20) 12/19/17 11:54 BUN 10 mg/dL (9-20) 12/19/17 11:54 Creatinine 0.9 mg/dL (0.8-1.5) 12/19/17 11:54 Est GFR ( Amer) > 60 12/19/17 11:54 Est GFR (Non-Af Amer) > 60 12/19/17 11:54 Random Glucose 192 mg/dL (75-110) H 12/19/17 11:54 Calcium 8.5 mg/dl (8.6-10.4) L 12/19/17 11:54 Total Bilirubin 0.7 mg/dL (0.2-1.3) 12/19/17 11:54 AST 29 U/L (17-59) 12/19/17 11:54 ALT 42 U/L (21-72) 12/19/17 11:54 Alkaline Phosphatase 73 U/L (38-126) 12/19/17 11:54 Total Protein 7.2 g/dL (6.3-8.3) 12/19/17 11:54 Albumin 3.2 g/dL (3.5-5.0) L 12/19/17 11:54 Globulin 4.0 gm/dL (2.2-3.9) H 12/19/17 11:54 Albumin/Globulin Ratio 0.8 (1.0-2.1) L 12/19/17 11:54 Blood Type A NEGATIVE 12/16/17 12:40 Antibody Screen Negative 12/16/17 12:40 - Hospital Course Hospital Course: 52 yr old male admitted s/p R groin hernia repair with mesh staple closure of colotomy POD #[address] to the r groin area, no s/s infection noted D/W Dr. Mccabe stable for discharge home today and f/u with office next Saturday and continue flagyl for 7 more days Discharge plan discussed with patient who understands and agrees with plan Patient instructed to returned to ED if any fever develops Discharge Exam - Head Exam Head Exam: ATRAUMATIC, NORMAL INSPECTION, NORMOCEPHALIC - Eye Exam Eye Exam: EOMI - ENT Exam ENT Exam: Mucous Membranes Moist - Respiratory Exam Respiratory Exam: Clear to PA & Lateral, NORMAL BREATHING PATTERN - Cardiovascular Exam Cardiovascular Exam: REGULAR RHYTHM, +S1, +S2 - GI/Abdominal Exam GI & Abdominal Exam: Normal Bowel Sounds Discharge Plan - Discharge Medications Prescriptions: Metronidazole [Flagyl] 500 mg PO BID #14 tablet - Follow Up Plan Condition: STABLE Disposition: HOME/ ROUTINE Instructions: Metronidazole (By mouth), Pain Management After Surgery (DC), Open Herniorrhaphy (DC), Regular Diet (DC) Additional Instructions: Please f/u with office next saturday Continue flagyl x 7 more days resume all home medications Please apply dressing to the R groin surgical site If you develop any fever please returns to ED 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
== END 2017-12-20 14:26 | disposition home or self-care (01) | DRG 352 ==
LOC: C.ER 10:12 → C.SDS 14:11 → C.9S 17:03 → C.6T 19:12
PROVIDERS: ADMIT Surgery; ATTEND Surgery
PROC: 0HX7XZZ Transfer Abdomen Skin, External Approach (ICD-10-PCS; 2017-12-16)
PROC: 0VBF0ZX Excision of Right Spermatic Cord, Open Approach, Diagnostic (ICD-10-PCS; 2017-12-16)
PROC: 0YU50JZ Supplement Right Inguinal Region with Synthetic Substitute, Open Approach (ICD-10-PCS; principal; 2017-12-16 15:00)
DX: K40.30 Unilateral inguinal hernia, with obstruction, without gangrene, not specified as recurrent (principal); D17.6 Benign lipomatous neoplasm of spermatic cord; I10 Essential (primary) hypertension; Z21 Asymptomatic human immunodeficiency virus [HIV] infection status